=== PATIENT | female | born 1995 | race Two or more races ===

== ENCOUNTER 2022-04-20 12:41 | Emergency (ER) | payer SELFPAY ==
[~2022-04-20] VITALS: Ht 167.6 cm; Wt 79.4 kg
[2022-04-20 13:09] VITALS: BP 133/76
[2022-04-20] MEDS ORDERED: AZIT500T66 PO (14:06)
[2022-04-20] MEDS ORDERED: ACE650RS PR (14:06)
[2022-04-20] MEDS ORDERED: cefTRIAXone SOD 1,000 MG VL IM ONE (14:15)
[2022-04-20] MEDS ORDERED: ACETAMINOPHEN 325 MG TAB PO ONE (14:15)
== END 2022-04-20 19:23 | disposition home or self-care (01) ==
LOC: ER 12:41
DX: O98.511 Other viral diseases complicating pregnancy, first trimester (principal); U07.1 COVID-19; J03.90 Acute tonsillitis, unspecified; Z3A.01 Less than 8 weeks gestation of pregnancy
CPT/HCPCS: 96372; 99283; J0696